=== PATIENT | male | born 1950 | race Caucasian/White ===

== ENCOUNTER → 2018-03-21 | Outpatient (CLI) | payer MEDICARE | END | disposition home or self-care (01) | LOC: PCVCCLINIC 11:47 | PROVIDERS: ATTEND Internal Medicine | DX: I25.10 Atherosclerotic heart disease of native coronary artery without angina pectoris (principal); I10 Essential (primary) hypertension; E78.5 Hyperlipidemia, unspecified; C61 Malignant neoplasm of prostate; E11.9 Type 2 diabetes mellitus without complications; Z86.718 Personal history of other venous thrombosis and embolism; Z79.899 Other long term (current) drug therapy; Z79.84 Long term (current) use of oral hypoglycemic drugs | CPT/HCPCS: 36415; 80061; 93005; G0463 ==

== ENCOUNTER → 2018-04-09 | Outpatient (CLI) | payer MEDICARE ==
--- NOTE | 2018-04-09 17:10 | PCVCIMAG ---
APPROVED REPORT Study performed: 04/09/2018 14:11:44 Exam: Stress Echocardiogram Indication: Coronary calcium by CT scan,[email or web address] Patient Location: Echo lab Stress Nurse: Yary Espinoza RN Room #: 22 Status: routine Ht: 6 ft 2 in HR: 96 bpm BP: 112/62 mmHg Rhythm: NSR, , First degree AV Block Medical History Medical History: Diabetes, HTN, Hyperlipidemia,CAD by CT,prostate Ca Cardiac Risk Factors: HTN, Hyperlipidemia, DM Previous Cardiac Procedures: none Pretest Chest Pain Characteristics: No chest pain Exercise History: Sedentary Physical Disabilities: Knees Procedure The patient underwent an Exercise Stress Test using the Katie Protocol. Blood pressure, heart rate, and EKG were monitored. An Echocardiogram was performed by microelectronics technician in four stages in quad fashion. At peak stress, four selected images were obtained and placed side by side with resting images for comparison. Stress Test Details Stress Test: Exercise stress testing was performed using a Katie protocol. HR Resting HR: 81 bpmMax Heart Rate (APMHR): 152 bpm Max HR Achieved: 144 bpmTarget HR (85% APMHR): 129 bpm % of APMHR: 94 Recovery HR: 85 bpm HR response to stress: Normal HR response to stress BP Resting BP: 112/62 mmHg Max BP: 142/80 mmHg Recovery BP: 140/80 mmHg BP response to stress: Normal blood pressure response to stress. ECG Resting ECG: Sinus Rhythm, , 1st degree AV block Stress ECG: Sinus Tachycardia with PACs ST Change: Downsloping ST depression Maximum ST Deviation: 2.5 mm Arrhythmia: occasional PVCs,PACs Recovery ECG: Sinus Tachycardia, Recovery ST Change: Horizontal ST depression Recovery ST Deviation: 2 mm Recovery Arrhythmia: VPC Clinical Reason for Termination: Maximal effort Stress Symptoms: dyspnea,fatigue Exercise duration: 3 min 55 sec Highest Stage Achieved: Stage 2: 2.5 mph at 12% grade. Exercise capacity: 6.8 METs Overall Exercise Capacity for Age: Poor Scale: Sedentary Angina Score: None No complications. Stress ECG Conclusion The patient exercised according to the KATIE protocol for 3:55 mins; achieving a work level of 6.8 METS. The resting heart rate of 81 bpm miles to a maximum heart rate of 144 bpm. This value represent 94% of the maximal, age-predicted heart rate. The resting blood pressure of 112/62 mmHg, miles to a maximum blood pressure of 142/80 mmHg. The exercise test was stopped due tofatigue. Kinney Treadmill Score is -9.5 which is Moderate risk. Pre-Stress Echo The resting Echocardiogram showed normal left ventricular contractility with an estimated Ejection Fraction of about 55-60%. Normal wall motion in all segments on baseline images. Post-Stress Echo The stress Echocardiogram showed normal left ventricular contractility with an estimated Ejection Fraction of about 60-65%. Normal augmentation of wall motion in all segments on post stress images. Conclusion Clinical Response: Non-ischemic Exercise Capacity: Below Average Stress ECG Response: Ischemic Stress Echo Images: Indeterminant Indeterminant stress echocardiogram with maximal exercise stress due to technically difficult imaging. Ischemic electrocardiographic changes Recommend nuclear imaging given this inderminant study No prior study available for comparison. Other Information Study Quality: Poor <Conclusion> Indeterminant stress echocardiogram with maximal exercise stress due to technically difficult imaging. Ischemic electrocardiographic changes Recommend nuclear imaging given this inderminant study
== END | disposition home or self-care (01) ==
LOC: PCVCIMAG 14:07
PROVIDERS: ATTEND Internal Medicine
DX: I25.10 Atherosclerotic heart disease of native coronary artery without angina pectoris (principal); E78.5 Hyperlipidemia, unspecified; E11.9 Type 2 diabetes mellitus without complications; I10 Essential (primary) hypertension
CPT/HCPCS: 93325; 93351